=== PATIENT | female | born 1985 | race Caucasian/White ===

== ENCOUNTER 2024-08-19 07:36 | Inpatient (IN) | payer BC, MEDICAID ==
[~2024-08-19] VITALS: Ht 152.4 cm; Wt 72.7 kg
[2024-08-19 07:38] VITALS: O2SAT 98
[2024-08-19] MEDS: ONDANSETRON HCL 4MG/2ML INJ IV STA (08:16)
[2024-08-19] MEDS: MORPHINE SULFATE 4 MG/ML INJ (FOR IV/IM USE) IV STA (08:18)
[2024-08-19] MEDS: SODIUM CHLORIDE 0.9% 1,000 ML IV ONE (08:21)
[2024-08-19 08:22] LABS: BASOPHILS % 0.6 % (0.0-2.0); EOSINOPHILS % 3.7 % (0.0-5.0); HEMATOCRIT. 39.4 % (36.0-48.0); HEMOGLOBIN. 13.2 g/dL (12.0-16.0); LYMPHOCYTES % 47.2 % (20.0-50.0); MEAN CORPUSCULAR HEMOGLOBIN 31.4 pg (28.0-32.0); MEAN CORPUSCULAR HGB CONC 33.5 g/dL (31.0-37.0); MEAN CORPUSCULAR VOLUME 93.9 fL (81.0-99.0); MEAN PLATELET VOLUME 9.4 fl (7.4-10.4); MONOCYTES % 5.8 % (2.0-8.0); NEUTROPHILS % 42.7 % (40.0-76.0); PLATELET 242 x1000/uL (130-400); RED CELL DISTRIBUTION WIDTH 13.2 % (11.6-14.6); WHITE BLOOD COUNT 4.5 x1000/uL (4.5-11.0)
[2024-08-19 08:26] LABS: DIFFERENTIAL COMMENT 1
[2024-08-19 08:29] LABS: CHLORIDE 107 mEq/L (98-107); POTASSIUM 4.2 mEq/L (3.5-5.1); SODIUM 140 mEq/L (136-145)
[2024-08-19 08:30] LABS: CALCIUM 9.8 mg/dL (8.7-10.4); CARBON DIOXIDE 28 mEq/L (21-32)
[2024-08-19 08:33] LABS: HCG SCREEN NEGATIVE
[2024-08-19 08:34] LABS: PROTHROMBIN TIME 11.5 sec (9.6-11.0)
[2024-08-19 08:35] LABS: CREATININE 0.7 mg/dL (0.6-1.0); GLUCOSE 92 mg/dL (70-105); UREA NITROGEN BLOOD 15 mg/dL (9-23)
[2024-08-19] MEDS: MORPHINE SULFATE 4 MG/ML INJ (FOR IV/IM USE) IV ONE ×2 (08:39→09:57)
[2024-08-19 09:22] LABS: CLARITY URINE CLEAR (CLEAR); COLOR URINE YELLOW (YELLOW); GLUCOSE URINE NEGATIVE (NEGATIVE); KETONES URINE TRACE (NEGATIVE); LEUKOCYTE ESTERASE URINE TRACE (NEGATIVE); NITRITE URINE NEGATIVE (NEGATIVE); OCCULT BLOOD URINE 3+ (NEGATIVE); PH URINE 6.5 (4.5-8.0); PROTEIN URINE TRACE (NEGATIVE); SPECIFIC GRAVITY URINE 1.023 (1.005-1.030)
[2024-08-19 09:57] LABS: SQUAMOUS EPITHELIAL CELL URINE 1+ /lpf (RARE/1+)
[2024-08-19 09:58] LABS: BACTERIA URINE 2+; RBC URINE TNTC /hpf (0-2); WBC URINE 0-2 /hpf (0-2)
[2024-08-19] MEDS ORDERED: ACETAMINOPHEN 325MG TABLET PO PRN (10:30)
[2024-08-19] MEDS ORDERED: GUAIFENESIN 200MG/10ML SUGAR FREE UDC PO PRN (10:30)
[2024-08-19] MEDS ORDERED: DOCUSATE SODIUM 100MG CAPSULE PO PRN (10:30)
[2024-08-19] MEDS ORDERED: MAGNESIUM/ALUMINUM HYDROXIDE/SIMETHICONE 30ML UDC PO PRN (10:30)
[2024-08-19] MEDS ORDERED: CLONIDINE 0.1MG TABLET PO PRN (10:30)
[2024-08-19] MEDS ORDERED: IPRATROPIUM/ALBUTEROL 0.5-3(2.5)MG/3ML NEB HHN PRN (10:30)
[2024-08-19] MEDS ORDERED: ONDANSETRON HCL 4MG/2ML INJ IV PRN (10:30)
[2024-08-19] MEDS: KETOROLAC 15MG/ML VIAL IV NR (10:39)
[2024-08-19 12:00] VITALS: BP 130/78; PULSE 88; RESP 17; TEMP 36.6404
[2024-08-19] MEDS: ACETAMINOPHEN 325MG TABLET PO PRN (12:11)
[2024-08-19] MEDS: DEXT 5%/LACTATED RINGERS 1,000 ML IV SCH (12:13)
[2024-08-19] MEDS: PANTOPRAZOLE SODIUM 40 MG/VIAL IV SCH (12:14)
[2024-08-19] MEDS: SUCRALFATE 1G TABLET PO SCH (12:42)
[2024-08-19] MEDS: MORPHINE SULFATE 2 MG/ML INJ (NOT FOR IM USE) IV NR (13:00)
[2024-08-19] MEDS ORDERED: MORPHINE SULFATE 2 MG/ML INJ (NOT FOR IM USE) IV PRN (16:45)
[2024-08-19] MEDS ORDERED: NALOXONE HCL 0.4MG/ML VIAL IV PRN (17:00)
[2024-08-19] MEDS: MAGNESIUM 2 G PREMIX 50 ML IV NR (18:38)
[2024-08-19 20:00] VITALS: BP 91/58; PULSE 68; RESP 17; TEMP 37.00296; O2SAT 97
[2024-08-19] MEDS: KETOROLAC 15MG/ML VIAL IV PRN (20:04)
[2024-08-19 22:46] LABS: CREATINE KINASE 34 IU/L (34-145); TROPONIN I HIGH SENSITIVITY < 4 ng/L (3.0-34)
[2024-08-20] VITALS: BP 102/56; PULSE 61; RESP 17; TEMP 36.28068; O2SAT 100
[2024-08-20 04:00] VITALS: BP 103/41; PULSE 60; RESP 19; TEMP 37.05852; O2SAT 98
[2024-08-20 08:00] VITALS: BP 84/48; PULSE 77; RESP 19; TEMP 36.05844; O2SAT 98
[2024-08-20 10:32] LABS: BASOPHILS % 0.7 % (0.0-2.0); EOSINOPHILS % 6.8 % (0.0-5.0); HEMATOCRIT. 36.4 % (36.0-48.0); HEMOGLOBIN. 12.3 g/dL (12.0-16.0); LYMPHOCYTES % 33.7 % (20.0-50.0); MEAN CORPUSCULAR HEMOGLOBIN 31.8 pg (28.0-32.0); MEAN CORPUSCULAR HGB CONC 33.7 g/dL (31.0-37.0); MEAN CORPUSCULAR VOLUME 94.2 fL (81.0-99.0); MONOCYTES % 6.7 % (2.0-8.0); NEUTROPHILS % 52.1 % (40.0-76.0); PLATELET 221 x1000/uL (130-400); RED BLOOD CELL COUNT 3.87 mill/uL (4.2-5.4); WHITE BLOOD COUNT 4.5 x1000/uL (4.5-11.0)
[2024-08-20 10:34] LABS: *AMPHETAMINES SCREEN URINE NEGATIVE (NEGATIVE); *BARBITURATES SCREEN URINE NEGATIVE (NEGATIVE)
[2024-08-20 10:35] LABS: *BENZODIAZEPINES SCREEN URINE NEGATIVE (NEGATIVE); *COCAINE SCREEN URINE NEGATIVE (NEGATIVE); CANNABINOID URINE SCREEN NEGATIVE (NEGATIVE); ECSTASY MDMA SCREEN URINE NEGATIVE (NEGATIVE); METHADONE URINE SCREEN NEGATIVE (NEGATIVE); OPIATES URINE SCREEN PRESUMPTIVE POSITIVE (NEGATIVE); PHENCYCLIDINE URINE SCREEN NEGATIVE (NEGATIVE)
[2024-08-20 10:41] LABS: CHLORIDE 109 mEq/L (98-107); POTASSIUM 4.4 mEq/L (3.5-5.1); SODIUM 140 mEq/L (136-145)
[2024-08-20 10:42] LABS: CALCIUM 8.9 mg/dL (8.7-10.4); CARBON DIOXIDE 29 mEq/L (21-32)
[2024-08-20 10:47] LABS: CREATININE 0.7 mg/dL (0.6-1.0); GLUCOSE 92 mg/dL (70-105); UREA NITROGEN BLOOD 10 mg/dL (9-23)
[2024-08-20 10:49] LABS: ALANINE AMINOTRANSFERASE 31 IU/L (10-49); ALBUMIN 3.8 g/dL (3.2-4.8); ASPARTATE AMINOTRANSFERASE 30 IU/L (<34); BILIRUBIN DIRECT 0.1 mg/dL (<=3.0)
[2024-08-20 10:50] LABS: BILIRUBIN TOTAL 0.4 mg/dL (0.1-1.0); PROTEIN TOTAL 6.2 g/dL (6.0-8.3); T4 FREE 1.05 ng/dL (0.89-1.76)
[2024-08-20 10:51] LABS: THYROID STIMULATING HORMONE 0.83 uIU/mL (0.55-4.78)
[2024-08-20 12:00] VITALS: BP 93/54; PULSE 62; RESP 19; TEMP 36.28068; O2SAT 98
[2024-08-20 16:00] VITALS: BP 101/62; PULSE 67; RESP 18; TEMP 36.50292; O2SAT 99
[2024-08-20 20:00] VITALS: BP 92/55; PULSE 58; RESP 18; TEMP 36.50292; O2SAT 100
[2024-08-21] VITALS: BP 92/59; PULSE 55; RESP 18; TEMP 36.50292; O2SAT 100
[2024-08-21 04:00] VITALS: BP 92/62; PULSE 65; RESP 18; TEMP 36.50292; O2SAT 100
[2024-08-21 08:00] VITALS: BP 105/61; PULSE 62; RESP 19; TEMP 36.83628; O2SAT 100
[2024-08-21 12:00] VITALS: BP 89/54; PULSE 52; RESP 18; TEMP 37.16964; O2SAT 100
== END 2024-08-21 13:07 | disposition left against medical advice (07) | DRG 694 ==
LOC: ER 08:23 → 6EST 10:40
PROVIDERS: ADMIT Preventive Medicine Clinical Informatics; ATTEND Preventive Medicine Clinical Informatics
DX: N13.2 Hydronephrosis with renal and ureteral calculous obstruction (principal); Z53.29 Procedure and treatment not carried out because of patient's decision for other reasons; Z90.49 Acquired absence of other specified parts of digestive tract; Z98.84 Bariatric surgery status
CPT/HCPCS: 36415; 74176; 76770; 80048; 80076; 80305; 81003; 82550; 83605; 83735; 83930; 84145; 84439; 84443; 84484; 84703; 85025; 85651; 93005; 99285; J1885; J2270; J2405; J2470; J3475; J7030